=== PATIENT | male | born 1955 | race African-American/Black ===

== ENCOUNTER 2017-10-11 11:48 | Emergency (ER) | payer BC ==
[~2017-10-11] VITALS: Ht 175.3 cm; Wt 108.0 kg
[~2017-10-11 11:48] MED LIST: CYCL5TAB PO; GLUCTAB PO; LANTUS2P SC; LISI-363 PO
[2017-10-11 12:54] VITALS: BP 166/75; PULSE 88; RESP 18; TEMP 98.5; O2SAT 97
[2017-10-11] MEDS ORDERED: HYDR25TA5 PO (13:01)
[2017-10-11] MEDS ORDERED: LANTUS2P SQ (13:57)
[2017-10-11] MEDS ORDERED: LISI-515 PO (13:58)
[2017-10-11] MEDS ORDERED: CHERSYP2 PO (14:52)
[2017-10-11] MEDS ORDERED: ZITHTAB PO (14:52)
--- NOTE | 2017-10-11 14:53 | PD ---
HPI Chief Complaint: Cold / Flu Symptoms Time Seen by Provider: 14:50 Travel History International Travel<30 days: No Contact w/Intl Traveler<30days: No Traveled to known affect area: No History of Present Illness HPI Patient presents with complaints of sinus pain and pressure for several days. Reports a history of frequent sinus infections. Denies any nausea vomiting diarrhea or fever. Unknown sick contacts. No new rashes. PFSH Past Medical History Diabetes: Yes Patient Takes Glucophage: Yes Diminished Hearing: No Hypertension: Yes Immunizations Current: No Influenza Vaccination: No Past Surgical History Other Surgery: Yes (NOSE SURGERY) Social History Alcohol Use: No Tobacco Use: No Substance Use: No Allergies-Medications (Allergen,Severity, Reaction): Coded Allergies: No Known Allergies (Verified Adverse Reaction, Unknown, 10/11/17) Reported Meds & Prescriptions Reported Meds & Active Scripts Active Reported Lisinopril 20 Mg Tab 20 Mg PO DAILY Lantus Inj (Insulin Glargine) 1,000 Unit/10 Ml Vial 16 Units SQ AM Hydrochlorothiazide 25 Mg Tab 25 Mg PO DAILY Glucophage XR 24 HR (Metformin HCl) 500 Mg Tab 1,000 Mg PO Review of Systems General / Constitutional: No: Fever Eyes: No: Visual changes HENT: No: Headaches Cardiovascular: No: Chest Pain or Discomfort Respiratory: No: Shortness of Breath Gastrointestinal: No: Abdominal Pain Genitourinary: No: Dysuria Musculoskeletal: No: Pain Skin: No Rash Neurologic: No: Weakness Psychiatric: No: Depression Endocrine: No: Polydipsia Hematologic/Lymphatic: No: Easy Bruising Physical Exam Narrative GENERAL: Well-nourished, well-developed patient. SKIN: Focused skin assessment warm/dry. Nares erythematous and boggy with tenderness over the ethmoid sinuses HEAD: Normocephalic. EYES: No scleral icterus. No injection or drainage. NECK: Supple, trachea midline. No JVD or lymphadenopathy. CARDIOVASCULAR: Regular rate and rhythm without murmurs, gallops, or rubs. RESPIRATORY: Breath sounds equal bilaterally. No accessory muscle use. GASTROINTESTINAL: Abdomen soft, non-tender, nondistended. MUSCULOSKELETAL: No cyanosis, or edema. BACK: Nontender without obvious deformity. No CVA tenderness. Data Data Last Documented VS Vital Signs Date Time Temp Pulse Resp B/P (MAP) Pulse Ox O2 Delivery O2 Flow Rate FiO2 10/11/17 12:56 18 97 Room Air 10/11/17 12:54 98.5 88 166/75 (105) MDM Medical Decision Making Medical Screen Exam Complete: Yes Emergency Medical Condition: Yes Differential Diagnosis Sinusitis, viral syndrome, cough, allergies Narrative Course Assessment and plan discussed with patient at bedside Patient Instructions: General Instructions Additional Instructions: Rest fluids and Motrin, consider nasal irrigation, consider vitamin C and zinc to boost immune system, return to emergency room with any onset of new symptoms. Follow-up with PCP. Med/Other Pt SpecificInfo: Prescription(s) given Scripts Guaifenesin-Codeine Liq (Cheratussin AC Liq) 100-10 Mg/5 Ml Syrp 10 ML PO Q4H Y for COUGH AND COLD SYMPTOMS, #120 ML 0 Refills Do not exceed 6 doses/24 hrs. Prov: Favian Sultana MD 10/11/17 Azithromycin (Zithromax Z-Eduard) 250 Mg Dspk 250 MG PO DIRECTED for Infection, #1 DSPK 0 Refills 500 MG (2 tabs) day 1, then 1 tab days 2-5. Prov: Favian Sultana MD 10/11/17 Disposition: 01 DISCHARGE HOME Condition: Good Favian Sultana MD Oct 11, 2017 14:53
[2017-10-11 15:45] VITALS: BP 156/72
== END 2017-10-11 15:46 | disposition home or self-care (01) ==
LOC: PHED 11:48
DX: R51 Headache (principal); E11.9 Type 2 diabetes mellitus without complications; I10 Essential (primary) hypertension; Z79.4 Long term (current) use of insulin; Z79.899 Other long term (current) drug therapy
CPT/HCPCS: 99283